=== PATIENT | female | born 1975 | race Hispanic/Latino ===

== ENCOUNTER 2020-10-25 | Emergency (ER) | payer OTHER ==
[~2020-10-25] MED LIST: AMOXICILLIN500 MG PO; ANTIVERT PO; BACTRIM DS1 TAB PO; CIPROFLOXACN500 MG PO; MEDDOSEPAK PO; NAPROSYN500 MG PO; PYRIDIUM200 MG PO; SYNTHROID50 MCG PO; ZOFRAN ODT4 MG PO
[2020-10-25 09:41] LABS: HEMATOCRIT 33.7 % (37.0-47.0); HEMOGLOBIN 11.4 g/dl (12.0-16.0); IMMATURE GRANULOCYTES 0.2 % (0.0-5.0); MEAN CELL VOLUME 91.8 fL CALC (80.0-100.0); MEAN CORPUSCULAR HGB 31.1 pG CALC (26.0-32.0); MEAN CORPUSCULAR HGB CONC 33.8 g/dL CAL (32.0-36.0); NEUT# 7.12 thou/uL (2.00-7.15); RED BLOOD COUNT 3.67 mill/uL (4.20-5.60); RED CELL DISTRI WIDTH 13.5 % (11.5-15.5)
[2020-10-25 09:56] LABS: ALBUMIN 4.1 g/dL (3.2-5.0); ALKALINE PHOSPHATASE 56 u/l (38-126); AMYLASE 59 u/l (30-110); BUN 9 mg/dL (7-17); BUN/CREATININE RATIO 18 (12-20 (CALC)); CARBON DIOXIDE 25 mmol/l (22-30); CHLORIDE 99 mmol/l (95-108); CREATININE 0.5 mg/dL (0.5-1.0); GFR > 60 ML/MIN (>=60 (CALC)); GFR FOR AFR.AMER. > 60 ML/MIN (>=60 (CALC)); LIPASE 48 u/l (23-300); POTASSIUM 3.9 mmol/l (3.5-5.1); SGOT/AST 27 u/l (14-36); TOTAL PROTEIN 7.1 g/dL (6.3-8.2)
[2020-10-25 09:58] LABS: ANION GAP 12 (6-22 (CALC)); BILIRUBIN, TOTAL 0.8 mg/dL (0.0-1.4); SODIUM 132 mmol/l (137-146)
[2020-10-25 10:26] LABS: URINE BILIRUBIN - DIPSTICK NEGATIVE (NEGATIVE); URINE BLOOD DIPSTICK NEGATIVE (NEGATIVE); URINE COLOR YELLOW; URINE GLUCOSE - DIPSTICK NEGATIVE (NEGATIVE); URINE KETONE NEGATIVE (NEGATIVE); URINE LEUK ESTERASE NEGATIVE (NEGATIVE); URINE PROTEIN - DIPSTICK NEGATIVE (NEG-TRACE); URINE SPECIFIC GRAVITY <=1.005; URINE UROBILINOGEN - DIPSTICK 0.2 E.U./dL (0.2)
[2020-10-25 10:37] LABS: URINE NITRITE - DIPSTICK NEGATIVE (Negative)
[2020-10-25] MEDS ORDERED: CIPROFLOXACN500 MG PO (12:11)
[2020-10-25] MEDS ORDERED: METRONIDAZOL500 MG PO (12:11)
[2020-10-25] MEDS ORDERED: ONDANSETRON4 MG PO (12:11)
== END 2020-10-25 12:26 | disposition home or self-care (01) | DRG 392 ==
PROVIDERS: Emergency Medicine
DX: K52.9 Noninfective gastroenteritis and colitis, unspecified (principal)
CPT/HCPCS: Q9967

== ENCOUNTER 2021-11-21 08:23 | Day surgery (SDC) | payer BC ==
[~2021-11-21] VITALS: Ht 152.4 cm; Wt 72.6 kg
[~2021-11-21 08:23] MED LIST changes: +FERROUS SULF325 M2 PO; +LIPITOR80 M1 PO; +METRONIDAZOL500 MG PO; +ONDANSETRON4 MG PO
[2021-11-21 14:16] VITALS: BP 116/62
== END 2021-11-21 14:41 | disposition home or self-care (01) | DRG 812 ==
LOC: ORM 08:23
PROVIDERS: ATTEND Surgery
PROC: 0DJD8ZZ Inspection of Lower Intestinal Tract, Via Natural or Artificial Opening Endoscopic (ICD-10-PCS; principal; 2021-11-21)
PROC: 0DB48ZX Excision of Esophagogastric Junction, Via Natural or Artificial Opening Endoscopic, Diagnostic (ICD-10-PCS; 2021-11-21)
DX: D50.9 Iron deficiency anemia, unspecified (principal); K64.8 Other hemorrhoids; K21.9 Gastro-esophageal reflux disease without esophagitis

== ENCOUNTER 2022-09-11 02:42 | Observation (INO) | payer BC ==
[2022-09-11] VITALS (8 sets, daily range): BP systolic 107–137; BP diastolic 63–81
[~2022-09-11] VITALS: Ht 152.4 cm; Wt 75.0 kg
[2022-09-11 03:19] LABS: BASO% 0.4 % (0-3); EOS% 3.1 % (0-8); HEMATOCRIT 35.6 % (37.0-47.0); HEMOGLOBIN 11.5 g/dl (12.0-16.0); IMMATURE GRANULOCYTES 0.2 % (0.0-5.0); LYMPH% 31.4 % (15-41); MEAN CELL VOLUME 90.6 fL CALC (80.0-100.0); MEAN CORPUSCULAR HGB 29.3 pG CALC (26.0-32.0); MEAN CORPUSCULAR HGB CONC 32.3 g/dL CAL (32.0-36.0); MONO% 11.3 % (2-13); NEUT# 2.9 thou/uL (2.00-7.15); NEUT% 53.6 % (42-76); RED BLOOD COUNT 3.93 mill/uL (4.20-5.60); RED CELL DISTRI WIDTH 15.6 % (11.5-15.5)
[2022-09-11 03:20] LABS: URINE BILIRUBIN - DIPSTICK NEGATIVE (NEGATIVE); URINE BLOOD DIPSTICK LARGE (NEGATIVE); URINE COLOR YELLOW; URINE GLUCOSE - DIPSTICK NEGATIVE (NEGATIVE); URINE KETONE NEGATIVE (NEGATIVE); URINE LEUK ESTERASE NEGATIVE (NEGATIVE); URINE PH 7.5 (4.5-8.0); URINE PROTEIN - DIPSTICK TRACE mg/dL (NEG-TRACE); URINE UROBILINOGEN - DIPSTICK 0.2 E.U./dL (0.2)
[2022-09-11 03:21] LABS: URINE NITRITE - DIPSTICK NEGATIVE (Negative)
[2022-09-11 03:29] LABS: URINE RBC 25-50 RBC/hpf (0-5); URINE SQUAMOUS EPITHELIAL CELL FEW EPI/hpf (0-FEW)
[2022-09-11 03:34] LABS: ALBUMIN 4.6 g/dL (3.2-5.0); ALKALINE PHOSPHATASE 60 u/l (38-126); BUN 6 mg/dL (7-17); BUN/CREATININE RATIO 10 (12-20 (CALC)); CARBON DIOXIDE 28 mmol/l (22-30); CHLORIDE 106 mmol/l (95-108); CREATININE 0.6 mg/dL (0.5-1.0); GFR FOR AFR.AMER. > 60 ML/MIN (>=60 (CALC)); GFR OTHER RACES > 60 ML/MIN (>=60 (CALC)); LIPASE 97 u/l (23-300); POTASSIUM 3.4 mmol/l (3.5-5.1); TOTAL PROTEIN 7.8 g/dL (6.3-8.2)
[2022-09-11 03:38] LABS: ANION GAP 10 (6-22 (CALC)); BILIRUBIN, TOTAL 0.2 mg/dL (0.02-1.3); SGOT/AST 58 u/l (14-36); SODIUM 141 mmol/l (137-146)
--- NOTE | 2022-09-11 06:05 | NUR ---
PATIENT ADMITTED TO [facility] TO ROOM 263. ALERT AND ORIENTED. NAURUAN SPEAKING. SON PRESENT. PATIENT ASSISTED TO ROOM BED FROM STRETCHER. ASSESSMENT COMPLETE. PATIENT APPEARS VERY SLEEPY. NO DISTRESS NOTED. NO PAIN OBSERVED. ORIENTED TO ROOM, CALL LIGHT AND SURROUNDINGS. PATIENT NPO STATUS. BED REMAINS IN LOW POSITION. CALL OSHEA IN REACH.
--- NOTE | 2022-09-11 07:42 | NUR ---
PT RESTING IN LOW FOWLERS POSITION. A/OX3 ASSESSMENT AND VS COMPLETED. HEART RHYTHM NORM RESPIRATIONS ON ROOM AIR. IV SITE TO BE CHANGED. PT DENIES ADDITONAL NEEDS AT THE TIME ALL SAFETY PRECAUTIONS IN PLACE WITH FAMILY AT BEDSIDE.
[2022-09-11] MEDS ORDERED: PERCOCET 5/321 COMBO PO (10:46)
--- NOTE | 2022-09-11 12:02 | NUR ---
PT ABLE TO BE DC ONCE TOLERATION OF DIET PER MD SURGEON ORDER.
--- NOTE | 2022-09-11 12:48 | NUR ---
PT RESTING IN LOW FOWLERS POSITION PT AND FAMILY EDUCATED ON DC IF TOLERATION OF DIET AND NO NAUSEA. BOTH STATED UNDERSTANDING
--- NOTE | 2022-09-11 19:11 | NUR ---
Discharge instructions given. Patient verbalizes understanding of same. Discharged in stable condition via Wheelchair to Home with staff. All belongings sent with pt. iv removed
[2022-09-12] MEDS ORDERED: PERCOCET 5/321 COMBO PO (18:04)
== END 2022-09-11 18:59 | disposition home or self-care (01) | DRG 419 ==
LOC: ED 02:42 → ED-I 05:20 → ED 05:37 → MS2 05:38
PROVIDERS: Family Medicine; ADMIT Internal Medicine; ATTEND Internal Medicine
PROC: 0FT44ZZ Resection of Gallbladder, Percutaneous Endoscopic Approach (ICD-10-PCS; principal; 2022-09-11)
DX: K80.12 Calculus of gallbladder with acute and chronic cholecystitis without obstruction (principal); Z20.822 Contact with and (suspected) exposure to COVID-19
CPT/HCPCS: G0378; J0131; J1610; Q9966; Q9967

== ENCOUNTER 2024-06-30 16:35 | Emergency (ER) | payer OTHER ==
[~2024-06-30] VITALS: Ht 152.4 cm; Wt 68.0 kg
[~2024-06-30 16:35] MED LIST changes: +PERCOCET 5/321 COMBO PO
[2024-06-30 16:44] VITALS: BP 134/80
[2024-06-30 16:45] VITALS: BP 120/77
[2024-06-30] MEDS ORDERED: METOCLOPRAMIDE HCL 10 MG/2 ML SDV IV ONE (16:45)
[2024-06-30] MEDS ORDERED: KETOROLAC TROMETHAMINE 30 MG/ML SDV IV ONE (16:45)
[2024-06-30] MEDS ORDERED: DiphenhydrAMINE HCL 50 MG/ML SDV IV ONE (16:45)
[2024-06-30 17:01] VITALS: BP 104/64
[2024-06-30 17:15] VITALS: BP 121/71
[2024-06-30 17:15] LABS: BASO% 0.7 % (0-3); EOS% 2.6 % (0-8); HEMATOCRIT 31.6 % (37.0-47.0); HEMOGLOBIN 10.2 g/dl (12.0-16.0); IMMATURE GRANULOCYTES 0.2 % (0.0-5.0); LYMPH% 26.1 % (15-41); MEAN CORPUSCULAR HGB 28.7 pG CALC (26.0-32.0); MEAN CORPUSCULAR HGB CONC 32.3 g/dL CAL (32.0-36.0); MONO% 5.1 % (2-13); NEUT# 3.98 thou/uL (2.00-7.15); NEUT% 65.3 % (42-76); RED BLOOD COUNT 3.55 mill/uL (4.20-5.60); RED CELL DISTRI WIDTH 15.4 % (11.5-15.5)
[2024-06-30 17:25] LABS: CREATININE 0.5 mg/dL (0.5-1.0); POTASSIUM 3.5 mmol/l (3.5-5.1)
[2024-06-30 17:26] LABS: BILIRUBIN, TOTAL 0.3 mg/dL (0.02-1.3)
[2024-06-30 17:46] VITALS: BP 95/64
[2024-06-30] MEDS ORDERED: DEXAMETHASONE SOD. PHOSPHATE 10 MG/ML VIAL IV ONE (17:55)
[2024-06-30 18:00] VITALS: BP 102/64
== END 2024-06-30 18:30 | disposition home or self-care (01) | DRG 103 ==
LOC: ED 16:35
PROVIDERS: Family Medicine
DX: R51.9 Headache, unspecified (principal)
CPT/HCPCS: J1100; J1200; J2765